=== PATIENT | male | born 1990 | race Two or more races ===

== ENCOUNTER 2018-12-02 19:59 | Emergency (ER) | payer OTHER ==
[~2018-12-02] VITALS: Ht 167.6 cm; Wt 80.3 kg
== END 2018-12-02 22:09 | disposition home or self-care (01) ==
LOC: ER 19:59
DX: K29.70 Gastritis, unspecified, without bleeding (principal); R10.13 Epigastric pain

== ENCOUNTER → 2025-05-21 | Emergency (ER) | payer OTHER ==
[~2025-05-21] VITALS: Ht 167.6 cm; Wt 79.4 kg
[~2025-05-21] MED LIST: ADDERALL 10 MG10 MG; ORPHENADRINE CITRATE 30 MG/ML AMPUL IM ONE
[2025-05-21 10:41] VITALS: BP 119/73; O2SAT 97
== END | disposition designated cancer center or children's hospital (05) ==
LOC: ER 10:35
DX: S69.82XA Other specified injuries of left wrist, hand and finger(s), initial encounter (principal); Z88.6 Allergy status to analgesic agent; M62.838 Other muscle spasm